=== PATIENT | female | born 1955 | race Two or more races ===

== ENCOUNTER 2019-02-24 22:15 | Emergency (ER) | payer OTHER ==
[~2019-02-24] VITALS: Ht 162.6 cm; Wt 62.6 kg
[2019-02-25] MEDS ORDERED: PROMETHAZINE D118 ML PO (07:13)
== END 2019-02-25 07:39 ==
LOC: ER 22:15
DX: J45.998 Other asthma (principal); R05 Cough

== ENCOUNTER 2025-03-18 21:34 | Emergency (ER) | payer OTHER ==
[~2025-03-18] VITALS: Ht 162.6 cm; Wt 63.5 kg
[~2025-03-18 21:34] MED LIST: PROMETHAZINE D118 ML PO
[2025-03-18] MEDS ORDERED: ONDANSETRON HCL 2 MG/ML VIAL IV STA (22:06)
[2025-03-18] MEDS ORDERED: FAMOTIDINE/PF 20 MG/2 ML VIAL IV PUSH STA (22:06)
[2025-03-18] MEDS ORDERED: 0.9 % SODIUM CHLORIDE 1,000 ML IV STA (22:10)
[2025-03-18] MEDS ORDERED: ONDANSETRON HCL 2 MG/ML VIAL ONE (22:14)
[2025-03-18] MEDS ORDERED: FAMOTIDINE/PF 20 MG/2 ML VIAL ONE (22:14)
[2025-03-18 23:02] LABS: ABG PH 7.515 (7.35-7.45); ABG PO2 111.1 mmHg (80-100); BICARBONATE 20.7 mmol/l (23-25)
[2025-03-18 23:03] LABS: o2 21 %
[2025-03-18 23:45] LABS: ALT/SGPT 43.0 U/L (12-78); AST/SGOT 28.0 U/L (15-37); BILIRUBIN TOTAL 0.32 mg/dL (0.3-1.2); BUN CREA RATIO 17.0 (7.0-25.0); CREATININE SERUM 1.01 mg/dL (0.55-1.02); GFR 54.67; GLOBULINA 3.1 G/DL (2.4-3.5); GLUCOSE FASTING 97.0 mg/dL (65-100); OSMOLALITY SERUM 288.0 MOSM/KG (275-295)
[2025-03-18] MEDS ORDERED: LEVALBUTEROL HCL 1.25 MG/3 ML SOLUTION IH SCH (23:45)
[2025-03-18] MEDS ORDERED: METHYLPREDNISOLONE SOD SUCC 125 MG VIAL IV STA (23:51)
[2025-03-19] MEDS ORDERED: LEVALBUTEROL HCL 1.25 MG/3 ML SOLUTION IH ONE (00:15)
[2025-03-19] MEDS ORDERED: METHYLPREDNISOLONE SOD SUCC 125 MG VIAL ONE ×2 (00:18→06:36)
[2025-03-19 01:26] LABS: BASO % 0.6 % (0.1-1.2); EOS # 0.04 (0.04-0.54); EOS % 0.6 % (0.7-7.0); LYMPH # 2.22 (1.18-3.74); LYMPH % 31.1 % (19.3-53.1); MEAN PLATELET VOLUME 11.00 fl (9.4-12.4); MONO # 0.56 (0.24-0.82); MONO % 7.9 % (4.7-12.5); NEUT # 4.25 (1.56-6.13); NEUT % 59.5 % (34.0-71.1); RED CELL DISTRIBUTION WIDTH 12.4 % (11.6-14.4)
[2025-03-19 02:43] LABS: COVID-19 AG NEGATIVE (NEGATIVE)
[2025-03-19] MEDS ORDERED: GUAIFEN/DEXTROMETHORPHAN/PE PED LIQUID PO STA (03:37)
[2025-03-19] MEDS ORDERED: HYDROCODONE/CHLORPHEN P-STIREX 5 ML ML PO STA (03:45)
[2025-03-19] MEDS ORDERED: MAGNESIUM SULFATE 1,000 MG in 0.9 % SODIUM CHLORIDE 50 ML IV ONE (04:30)
[2025-03-19] MEDS ORDERED: LEVALBUTEROL HCL 0.63 MG/3 ML SOLUTION IH SCH (05:00)
[2025-03-19] MEDS ORDERED: MAGNESIUM SULFATE 50% 1,000 MG/2 ML VIAL ONE (05:03)
[2025-03-19] MEDS ORDERED: LEVALBUTEROL HCL 0.63 MG/3 ML SOLUTION IH ONE (05:25)
[2025-03-19] MEDS ORDERED: METHYLPREDNISOLONE SOD SUCC 125 MG VIAL IV SCH (06:00)
[2025-03-19] MEDS ORDERED: BUDESONIDE0.5 MG/2 M IH (07:42)
[2025-03-19] MEDS ORDERED: HYDROCODONE-CH115 ML PO (07:42)
[2025-03-19] MEDS ORDERED: LEVALBUTER0.63 MG/3 IH (07:43)
[2025-03-19 08:14] VITALS: BP 129/85; O2SAT 97
== END 2025-03-19 08:15 ==
LOC: ER 21:34
PROVIDERS: General Practice
DX: J45.909 Unspecified asthma, uncomplicated (principal); R06.02 Shortness of breath; R11.2 Nausea with vomiting, unspecified; Z20.822 Contact with and (suspected) exposure to COVID-19
CPT/HCPCS: 36415; 71046; 82803; 93005; 94640; 96365; 96366; 99283; J2405; J3475; J3490 ×3; J7030